=== PATIENT | female | born 1960 | race Caucasian/White ===

== ENCOUNTER 2017-04-02 18:02 | Emergency (ER) | payer OTHER ==
[~2017-04-02] VITALS: Ht 160 cm; Wt 61.9 kg
[~2017-04-02 18:02] MED LIST: ALBUTEROL SULF8.5 GM IH; AZITHROMYCIN250 MG PO; Advair HFA 230/21 IH; Aspirin Chewable PO; BLOOD PRESSURE; CELEXA10 MG PO; CITALOPRAM HBR10 MG PO; CLARITIN10 M3 PO; COMBIVENT RESPIM4 GM IH; COMBIVENT200 INHALA IH; DuoNeb IH; FLUOXETINE HCL10 MG PO; HYCODAN SYRUP480 ML PO; KEPPRA; LEVAQUIN500 MG PO; LEVOFLOXACIN750 MG PO; LISINOPRIL5 MG PO; MONTELUKAST SOD10 MG PO; MOTRIN600 MG PO; NAPROSYN500 MG PO; NICOTINE PATCH1 EAC2 TD; ORABASE-B7 GM MM; PEN-VEE K,VEET500 MG PO; PERCOCET 5/31 TABLET PO; PREDNISONE10 M1 PO; PREDNISONE10 MG PO; PREDNISONE20 MG PO; PREDNISONE50 MG PO; PROVENTIL HFA6.7 GM IH; PROVENTIL,2.5 MG/3 M IH; RANITIDINE HCL150 MG PO; ROBITUSSIN AC,T10 ML PO; SINGULAIR10 MG PO; SYMBICORT60 INHALAT IH; TESSALON PERLE100 MG PO; TRAMADOL HCL50 MG PO; TRAZODONE HCL50 MG PO; TYLENOL WITH C1 EACH PO; VENTOLIN HFA18 GM IH; VICODIN,LORT1 TABLET PO; ZANTAC150 MG PO; ZESTRIL,PRINIVI20 MG PO; ZITHROMAX TRI-500 MG PO; ZITHROMAX Z-PA250 MG PO; ZITHROMAX250 MG PO; ZOLPIDEM TARTRAT5 MG PO; Zestril,Prinivil PO; predniSONE PO
[2017-04-02 19:34] LABS: CHLORIDE 104 mEq/L (99-109); POTASSIUM 4.1 mEq/L (3.7-5.4); SODIUM 139 mEq/L (136-147)
[2017-04-02 19:36] LABS: GLUCOSE 110 mg/dL (70-99)
[2017-04-02 19:37] LABS: ANION GAP 10 MEQ/L (2-14)
[2017-04-02 19:39] LABS: GFR ESTIMATE (CALCULATED) > 59 mL/min/
[2017-04-02 19:40] LABS: UREA NITROGEN (BUN) 7 mg/dL (9-23)
[2017-04-02 19:44] LABS: TROP-I INTERPRETATION NEGATIVE; TROPONIN-I < 0.01 ng/mL (0.0-0.30)
[2017-04-02 21:42] VITALS: BP 123/76
== END 2017-04-02 21:42 | disposition home or self-care (01) ==
LOC: EME 18:02
PROVIDERS: Emergency Medicine
DX: J44.1 Chronic obstructive pulmonary disease with (acute) exacerbation (principal); J45.909 Unspecified asthma, uncomplicated; I10 Essential (primary) hypertension; K21.9 Gastro-esophageal reflux disease without esophagitis; F32.9 Major depressive disorder, single episode, unspecified; F17.200 Nicotine dependence, unspecified, uncomplicated
CPT/HCPCS: 71020; 80048; 84484; 93005; 99281; 99285; J7512; J7644

== ENCOUNTER 2017-07-03 03:19 | Emergency (ER) | payer OTHER ==
[~2017-07-03] VITALS: Ht 160 cm; Wt 48.3 kg
[2017-07-03 04:14] LABS: HEMATOCRIT 42.3 % (36.0-46.0); MCH 32.5 PG (29.0-34.0); MCHC 35.5 G/DL (30.0-36.0); MCV 91.8 FL (83-99); MEAN PLAT.VOLUME 10.5 uM^3 (9.5-12.4); PLATELET COUNT 223 K/uL (156-360); RBC DIS.WIDTH-CV 12.1 % (11.8-14.6); RBC DIS.WIDTH-SD 40.6 % (39-53); RED BLOOD COUNT 4.61 M/uL (3.80-5.20); WHITE BLOOD COUNT 7.6 K/uL (4.1-10.2)
[2017-07-03 04:25] LABS: CHLORIDE 98 mEq/L (99-109); POTASSIUM 3.4 mEq/L (3.7-5.4); SODIUM 132 mEq/L (136-147)
[2017-07-03 04:26] LABS: GLUCOSE 85 mg/dL (70-99)
[2017-07-03 04:28] LABS: ANION GAP 15 MEQ/L (2-14)
[2017-07-03 04:30] LABS: GFR ESTIMATE (CALCULATED) > 59 mL/min/
[2017-07-03 04:31] LABS: UREA NITROGEN (BUN) 4 mg/dL (9-23)
[2017-07-03 05:59] LABS: TROP-I INTERPRETATION NEGATIVE; TROPONIN-I < 0.01 ng/mL (0.0-0.30)
[2017-07-03] MEDS ORDERED: VITAMIN B-1250 MG PO (06:02)
[2017-07-03] MEDS ORDERED: FOLIC ACID1 MG PO (06:02)
[2017-07-03] MEDS ORDERED: VENTOLIN HFA18 GM IH (06:02)
[2017-07-03] MEDS ORDERED: PREDNISONE20 MG PO (06:02)
[2017-07-03 07:14] VITALS: BP 92/54
== END 2017-07-03 07:15 | disposition home or self-care (01) ==
LOC: EME 03:19
PROVIDERS: Nurse Practitioner Family
DX: J44.1 Chronic obstructive pulmonary disease with (acute) exacerbation (principal); F10.10 Alcohol abuse, uncomplicated; E86.0 Dehydration; F17.200 Nicotine dependence, unspecified, uncomplicated; I10 Essential (primary) hypertension; K21.9 Gastro-esophageal reflux disease without esophagitis
CPT/HCPCS: 71020; 80048; 84484; 85027; 93005; 94640; 99281; 99285; J7030; J7512; J7644

== ENCOUNTER 2018-02-28 02:44 | Emergency (ER) | payer OTHER ==
[~2018-02-28] VITALS: Ht 160 cm; Wt 68.7 kg
[~2018-02-28 02:44] MED LIST changes: +FOLIC ACID1 MG PO; +VITAMIN B-1250 MG PO
[2018-02-28 03:13] LABS: HEMOGLOBIN 16.1 G/DL (11.9-15.5); MCH 33.9 PG (29.0-34.0); MCHC 35.8 G/DL (30.0-36.0); MCV 94.7 FL (83-99); PLATELET COUNT 268 K/uL (156-360); RBC DIS.WIDTH-CV 11.9 % (11.8-14.6); RBC DIS.WIDTH-SD 41.8 % (39-53); RED BLOOD COUNT 4.75 M/uL (3.80-5.20)
[2018-02-28 03:21] LABS: PTT 31.1 SEC (25-37)
[2018-02-28 03:23] LABS: ALBUMIN 4.3 g/dL (3.2-4.8); CHLORIDE 104 mEq/L (99-109); POTASSIUM 3.9 mEq/L (3.7-5.4); SODIUM 138 mEq/L (136-147)
[2018-02-28 03:25] LABS: D-DIMER ELISA < 150.00 ng/mLDDU (<230); GLUCOSE 105 mg/dL (70-99)
[2018-02-28 03:27] LABS: TOTAL BILIRUBIN 0.4 mg/dL (0.0-1.0)
[2018-02-28 03:29] LABS: ALKALINE PHOSPHATASE 144 IU/L (3-129); CREATININE 0.6 mg/dL (0.6-1.3); GFR ESTIMATE (CALCULATED) > 59 mL/min/
[2018-02-28 03:30] LABS: UREA NITROGEN (BUN) 5 mg/dL (9-23)
[2018-02-28 03:31] LABS: AST (GOT) 25 IU/L (2-34)
[2018-02-28 03:32] LABS: ALT (GPT) 13 IU/L (3-49); LIPASE 71 U/L (1.0-51.0)
[2018-02-28 03:42] LABS: TROP-I INTERPRETATION NEGATIVE; TROPONIN-I 0.02 ng/mL (0.0-0.30)
[2018-02-28] MEDS ORDERED: PROVENTIL HFA6.7 GM IH (05:51)
[2018-02-28] MEDS ORDERED: PREDNISONE50 MG PO (05:51)
[2018-02-28 09:51] VITALS: BP 113/86
== END 2018-02-28 08:00 | disposition home or self-care (01) ==
LOC: EME → EDBD 02:44 → EME 08:00
PROVIDERS: Emergency Medicine
DX: J44.1 Chronic obstructive pulmonary disease with (acute) exacerbation (principal); J20.9 Acute bronchitis, unspecified; J44.0 Chronic obstructive pulmonary disease with (acute) lower respiratory infection; F17.200 Nicotine dependence, unspecified, uncomplicated; Z71.6 Tobacco abuse counseling; I10 Essential (primary) hypertension; K21.9 Gastro-esophageal reflux disease without esophagitis; Z88.2 Allergy status to sulfonamides; F32.9 Major depressive disorder, single episode, unspecified
CPT/HCPCS: 71045; 71275; 80053; 83690; 84484; 85027; 85379; 85610; 85730; 93005; 94640; 99281; 99285; J7030; J7512